=== PATIENT | male | born 1995 | race Caucasian/White ===

== ENCOUNTER 2016-10-18 04:06 | Emergency (ER) | payer SELFPAY ==
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
--- NOTE | 2016-10-18 06:51 | ED MED RECONCILIATION SUMMARY ---
Patient: LIN REAGAN Medication Reconciliation Report [facility] VisitID: [id number] [address] [place] [address] 21y, M Registration Date/Time: 10/18/2016 Weight: 72.5 kg Height/Length: 70 in. BMI: 22.9 ALLERGIES: None The patient's Home Medications are listed below: CONTINUE TAKING THE FOLLOWING MEDICATIONS: HumaLOG Subcutaneous Lantus Subcutaneous NovoLOG Subcutaneous The source(s) of the original Home Medication information: Not obtained. The following Medications were given to the patient in the Emergency Department: None. The following Medications were prescribed to the patient: Glucagon emergency kitInject 1 mg subcut PRN severe hypoglycemiaDisp #2No refills. -- Antolin Dominguez Dr.
--- NOTE | 2016-10-18 06:51 | ED MAR SUMMARY ---
..... Medication Administration Record [facility] [address], [place] [id number] Patient: LIN REAGAN Visit ID: [id number] 21y, M Weight: 72.5 kg Height/Length: 70 in BMI: 22.9 ALLERGIES: None
--- NOTE | 2016-10-18 06:51 | ED DISCHARGE INSTRUCTIONS ---
Patient: LIN REAGAN General Instructions [facility] VisitID: [id number] [place] [address] 21y, M Registration Date/Time: 10/18/2016 Moderately well controlled type 1 diabetes with hypoglycemia. No coma. INSTRUCTIONS Your Current Medications: CONTINUE TAKING THE FOLLOWING MEDICATIONS: HumaLOG Subcutaneous. Lantus Subcutaneous. NovoLOG Subcutaneous. Prescription Medications: Glucagon emergency kit Inject 1 mg subcut PRN severe hypoglycemia Disp #2 No refills. Follow-up: Follow up with your doctor in about two days. Call for an appointment. Screening today revealed the patient's blood pressure to be in the pre-hypertensive range. The patient should follow up with a primary care provider for blood pressure management. ADDITIONAL INFORMATION Insulin Reaction (Low Blood Sugar) You have been treated for an insulin reaction today. This occurs when insulin causes your blood sugar to gotoo low(hypoglycemia). It may happen if you take too much insulin. It can also occur from taking your usual amount of insulin, but not eating enough food due to vomiting or loss of appetite. Other causes include heavy exercise, strong emotions, missing meals, and alcohol use. Some people are sensitive to the following, which can also lower blood sugar: tobacco, caffeine and certain medicines [aspirin, Haldol (haloperidol), Darvon or Darvocet (propoxyphene), Thorazine (chlorpromazine), Inderal (propranolol), Norpace (disopyramide)]. If you suspect any of these may be affecting you, stop smoking, switch to decaf coffee, and avoid teas and johnny that contain caffeine. If you are taking any of the listed medicines, talk to your doctor about switching to another type. A class of medicine called beta blockers is used for high blood pressure, rapid heart rates and other conditions. Beta blockers may prevent the early symptoms of low blood sugar. In that case, you would not know that you were having a reaction until your blood sugar becomes dangerously low. If you are taking a beta david, talk to your doctor about switching to a different class. The beta david class includes Inderal (propranolol), Tenormin (atenolol), Lopressor (metoprolol), Corgard (nadolol), Trandateand Normodyne (labetalol) and Coreg (carvedilol). Home Care: During the next 24 hours rest and eat frequent small meals to avoid recurrence of low blood sugar. Learn the warning signals your body gives as your blood sugar starts to drop. See below. Always carry a source of fast-acting sugar with you in case you get symptoms of low blood sugar again. At the first sign of low blood sugar, eat or drink 15 to 20 grams of fast-acting sugar to raise your blood sugar. Examples include: 3 to 4 glucose tablets (found at most drugstores) 4 ounces (1/2 cup) of non-diet cola drinks (Coke, Pepsi, root beer, etc.) 4 ounces (1/2 cup) of fruit juice 2 tablespoons of raisins 1 tablespoon of honey Check your blood sugar 15 minutes after treating yourself. If it is still low, take another 15 to 20 grams of fast-acting sugar. Test again in 15 minutes. If its still low, go to an emergency room. Once your blood sugar returns to normal, eat a snack or meal to keep your blood sugar in a safe range. In the future, if you are not able to eat your normal amount at each meal due to illness or vomiting, you MUST reduce your insulin dose. Contact your doctor to ask for a temporary adjustment of your dose. If you cannot eat, and there is a delay in reaching your doctor, reduce your daily insulin dose to one-half of what you usually take. Check your blood sugar every 4-6 hours. Do this until you are able to begin eating normal amounts again. Wear a medical alert bracelet or carry a card in your wallet explaining that you are diabetic. In the event that you have a severe hypoglycemic reaction and are unable to give this information, it will help medical personnel provide proper care. Follow Up: Check and write down your blood sugar and insulin dose twice a daybefore breakfast and before dinner. Do this for the next 5 days. See your doctor during the next week to review these records. This will help determine if you need to adjust your insulin dose. For more information about diabetes, contact the [place] [employer]. www.diabetes.org or 922-145-5954. Get Prompt Medical Attention if any of the following occur: HIGH BLOOD SUGAR: frequent urination, dizziness, drowsiness, thirst, headache, nausea or vomiting, abdominal pain, vision changes, fast breathing, confusion or loss of consciousness LOW BLOOD SUGAR: fatigue, headache, shakes, excess sweating, hunger, feeling anxious or restless, vision changes, drowsiness, weakness, confusion, or loss of consciousness You have been given the following additional information: Diabetic Insulin Reaction (Electronically signed by Antolin Dominguez Dr. 10/18/2016 5:37)
--- NOTE | 2016-10-18 06:51 | ED MAR SUMMARY ---
..... Medication Administration Record [facility] [address] [place], [place] [id number] Patient: LIN REAGAN Visit ID: [id number] 21y, M Weight: 72.5 kg Height/Length: 70 in BMI: 22.9 ALLERGIES: None
--- NOTE | 2016-10-18 06:51 | ED MED RECONCILIATION SUMMARY ---
Patient: LIN REAGAN Medication Reconciliation Report [facility] VisitID: [id number] [address] [place] [address] 21y, M Registration Date/Time: 10/18/2016 Weight: 72.5 kg Height/Length: 70 in. BMI: 22.9 ALLERGIES: None The patient's Home Medications are listed below: CONTINUE TAKING THE FOLLOWING MEDICATIONS: HumaLOG Subcutaneous Lantus Subcutaneous NovoLOG Subcutaneous The source(s) of the original Home Medication information: Not obtained. The following Medications were given to the patient in the Emergency Department: None. The following Medications were prescribed to the patient: Glucagon emergency kitInject 1 mg subcut PRN severe hypoglycemiaDisp #2No refills. -- Antolin Dominguez Dr.
== END 2016-10-18 05:28 | disposition home or self-care (01) ==
LOC: ED SRH 04:06
DX: E10.649 Type 1 diabetes mellitus with hypoglycemia without coma (principal); Z79.4 Long term (current) use of insulin
CPT/HCPCS: 90098